=== PATIENT | female | born 1945 | race African-American/Black ===

== ENCOUNTER 2023-09-30 08:13 | Outpatient (CLI) | payer MEDICARE, OTHER ==
[2023-09-30 12:50] LABS: ESTIMATED AVERAGE GLUCOSE 131 mg/dL (70-100); HEMOGLOBIN A1c% 6.2 % (4.27-6.07)
== END 2023-09-30 08:14 | disposition home or self-care (01) ==
LOC: LAB.N 08:13
PROVIDERS: ATTEND Nurse Practitioner
DX: E11.9 Type 2 diabetes mellitus without complications (principal)
CPT/HCPCS: 36415; 83036

== ENCOUNTER 2023-10-03 15:55 | Outpatient (CLI) | payer MEDICARE, OTHER ==
[2023-10-03 18:14] LABS: BASOPHILS % (AUTO) 0.9 %; EOSINOPHILS # (AUTO) 0.2 10^3/uL (0.0-0.7); EOSINOPHILS % (AUTO) 4.3 %; HGB - HEMOGLOBIN 9.3 g/dL (12.0-16.0); LYMPHOCYTES # (AUTO) 1.1 10^3/uL (1.5-3.5); LYMPHOCYTES % (AUTO) 24.5 %; MEAN CORPUSCULAR HEMOGLOBIN 30.2 pg (27.0-31.0); MEAN CORPUSCULAR HGB CONC 32.1 g/dL (32.0-36.0); MEAN CORPUSCULAR VOLUME 94.2 fL (81.0-99.0); MEAN PLATELET VOLUME 9.3 fL (7.9-10.8); MONOCYTES # (AUTO) 0.5 10^3/uL (0.0-1.0); MONOCYTES % (AUTO) 10.2 %; NEUTROPHILS # (AUTO) 2.8 10^3/uL (1.5-6.6); NEUTROPHILS % (AUTO) 59.7 %; PLT - PLATELET COUNT 209 10^3/uL (130-450); RED BLOOD COUNT 3.08 10^6/uL (4.20-5.40); RED CELL DISTRIBUTION WIDTH 13.2 % (12.0-15.0); WHITE BLOOD COUNT 4.6 x10^3/uL (4.8-10.8)
[2023-10-03 18:37] LABS: ALBUMIN 3.6 g/dL (3.2-5.5); ALBUMIN/GLOBULIN RATIO 0.8 (1.0-2.2); BILIRUBIN,TOTAL 0.6 mg/dL (0.2-1.0); CALCIUM 9.3 mg/dL (8.5-10.3); CREATININE 1.2 mg/dL (0.6-1.3); POTASSIUM 3.9 mmol/L (3.5-4.5); TOTAL PROTEIN 7.9 g/dL (6.4-8.9)
[2023-10-03 18:53] LABS: BILIRUBIN,URINE NEGATIVE (NEGATIVE); GLUCOSE, URINE (UA) NEGATIVE (NEGATIVE); KETONES,URINE (UA) TRACE mg/dL (NEGATIVE); LEUKOCYTE ESTERASE, URINE MODERATE (NEGATIVE); NITRITE,URINE NEGATIVE (NEGATIVE); OCCULT BLOOD,URINE NEGATIVE (NEGATIVE); PH,URINE 7.5 PH (5.0-7.5); PROTEIN,URINE TRACE mg/dL (NEGATIVE); UROBILINOGEN,URINE 0.2 (NORMAL) E.U./dL (NORMAL)
[2023-10-03 19:11] LABS: CLARITY,URINE CLOUDY (CLEAR)
[2023-10-03 19:12] LABS: BACTERIA,URINE Many /HPF (None Seen); RBC,URINE 0-5 /HPF (0-5); SQUAMOUS EPITHELIAL CELL,UR FEW Squamous (<= Few)
== END 2023-10-03 15:56 | disposition home or self-care (01) ==
LOC: LAB.N 15:55
PROVIDERS: ATTEND Nurse Practitioner
DX: R35.0 Frequency of micturition (principal); R53.83 Other fatigue
CPT/HCPCS: 36415; 80053; 81001; 85025; 87086

== ENCOUNTER 2024-01-28 09:34 | Emergency (ER) | payer MEDICARE, BC, OTHER ==
[2024-01-28 09:45] VITALS: O2SAT 100
--- NOTE | 2024-01-28 10:02 | ED Physician Documentation ---
PD HPI UPPER EXT INJURY - Stated complaint Stated Complaint: RT SIDE PX - Chief complaint Chief Complaint: Ext Problem - History obtained from History obtained from: Patient - History of Present Illness Location: Right, Forearm, Hand Type of injury: Fall (she states she did stumble and fell forward using her walker, with catching herself with right hand few days ago. Has pain in hand with redness and swelling since yesterday, with pain up to shoulder. Increased swelling and pain in hand today. Swollen dorsally. No skin abrasions/lacs.) Timing - onset: How many days ago (2) Timing - duration: Days Timing - details: Gradual onset (she did not have much pain at the time of the stumble. Gradual increase.), Still present PD PAST MEDICAL HISTORY - Past Medical History Past Medical History: Yes Cardiovascular: Hypertension, High cholesterol, Coronary artery disease, Peripheral Vascular Disease Neuro: Peripheral neuropathy Endocrine/Autoimmune: Type 2 diabetes GI: GERD : Incontinence Musculoskeletal: Rheumatoid arthritis - Past Surgical History Past Surgical History: Yes - Present Medications Home Medications: Ambulatory Orders Medication Instructions Recorded Confirmed Cyanocobalamin (Vitamin B-12) 1,000 mcg PO DAILY 07/19/23 01/28/24 [Vitamin B-12] Gabapentin [Neurontin] 100 mg PO HS 07/19/23 01/28/24 Insulin Glargine [Lantus Solostar] 12 unit SUBQ DAILY 07/19/23 01/28/24 Leflunomide 2 mg PO DAILY 07/19/23 01/28/24 Metoprolol Succinate [Toprol Xl] 50 mg PO DAILY 07/19/23 01/28/24 Mirabegron [Myrbetriq] 50 mg PO DAILY 07/19/23 01/28/24 Pravastatin Sodium 20 mg PO DAILY 07/19/23 01/28/24 Solifenacin Succinate 5 mg PO DAILY 07/19/23 01/28/24 hydrALAZINE [Apresoline] 100 mg PO BID 07/19/23 01/28/24 Aspirin [Aspirin Regimen] 81 mg PO DAILY 11/04/23 01/28/24 Cholecalciferol [Vitamin D3] 50 mcg PO DAILY 11/04/23 01/28/24 Enalapril Maleate [Vasotec] 20 mg PO UD 11/04/23 01/28/24 Pantoprazole [Protonix] 40 mg PO DAILY 11/04/23 01/28/24 Acetaminophen [Acetaminophen Extra 500 mg PO QID PRN #40 tablet 01/28/24 Strength] HYDROcod/ACETAM 5/325 [Bronaugh 5/325] 1 ea PO Q8H PRN #10 tablet 01/28/24 dexAMETHasone [Decadron] 4 mg PO DAILY #3 tablet 01/28/24 - Allergies Allergies/Adverse Reactions: Allergies Allergy/AdvReac Type Severity Reaction Status Date / Time Iodinated Contrast Media Allergy Unknown Verified 01/28/24 10:06 metformin Allergy Unknown Verified 01/28/24 10:06 sulfacetamide Allergy Rash Verified 01/28/24 10:06 sulfamethoxazole Allergy Rash Verified 01/28/24 10:06 [From Sulfamethoxazole-Trimethoprim] trimethoprim Allergy Rash Verified 01/28/24 10:06 [From Sulfamethoxazole-Trimethoprim] - Social History Does the pt smoke?: No Smoking Status: Never smoker Does the pt drink ETOH?: No Does the pt have substance abuse?: No - Immunizations Immunizations are current?: Yes - POLST Patient has POLST: No PD ED PE NORMAL - Vitals Vital signs reviewed: Yes - General General: Alert and oriented X 3, Well developed/nourished - Derm Derm: Normal color, Warm and dry - Extremities Extremities: Other (shoulder and elbow without tenderness and passive ROM is without pain. No generl deformity. DOrsal right proximal hand/wrist with redness, exquisite tenderness and swelling. Palmar not tneder. No skin lesions/ abrasions noted. ) - Neuro Neuro: No motor deficit, No sensory deficit Results - Vitals Vitals: Vital Signs - 24 hr 01/28/24 01/28/24 09:38 12:49 Temperature 35.8 C L 36.3 C L Heart Rate 67 66 Respiratory 20 16 Rate Blood Pressure 123/83 H 145/66 H O2 Saturation 100 100 Oxygen O2 Source Room air - Rads (name of study) right hand xray Relevant Findings:: Prelim report reviewed (no fractures. ), EMP independent interpretation of test PD Medical Decision Making - ED course Complexity details: reviewed results (xray without fractures. ), considered differential (redness, swelling and very tender dorsal hand. No tenderness directly at elbow/shoulder and passive ROM of those areas does not hurt. No skin lesions of hand. I feel c/w gout or bruising. H/O maybe gout, but Dx as rheumatoid instead. ), d/w patient Departure - Departure Disposition: 01 Home, Self Care Clinical Impression: Swelling of right hand, Arm pain Condition: Stable Record reviewed to determine appropriate education?: Yes Follow-Up: Cheryle Moreno ARNP [Primary Care Provider] - Prescriptions: Acetaminophen [Acetaminophen Extra Strength] 500 mg PO QID PRN #40 tablet PRN Reason: Pain dexAMETHasone [Decadron] 4 mg PO DAILY #3 tablet HYDROcod/ACETAM 5/325 [Bronaugh 5/325] 1 ea PO Q8H PRN #10 tablet PRN Reason: Pain Comments: The x-ray of your hand does not show any obvious fractures or bony abnormalities. There are some arthritis in the wrist. I presume the swelling redness and tenderness on your hand is either a sprain or contusion or could be a flare of an inflammatory process such as gout or rheumatoid. You do have a history of rheumatoid and so this may be a episode of that. It could be affecting up to your shoulder as well. I would suggest treating with some anti-inflammatories. You do have some mild renal impairment/kidney function impairment and so minimize the NSAID use but you can still use it occasionally such as ibuprofen. Instead we can go with a steroid anti-inflammatory. This may increase your blood sugars in the short-term but you do have the sliding scale insulin if needed. Continue checking your blood sugars as usual. I would continue the dexamethasone steroid daily for 3 days to help with the inflammation and pain. To that add acetaminophen 4 times daily regularly for the next 7 to 10 days. To that you could add hydrocodone/acetaminophen every 6-8 hours if needed for worse pain, particularly before bed etc. Recheck if not improving well over the next few days. Use the wrist splint to help with discomfort of wrist motion. Follow-up or return if increasing or spreading redness. It does not look like an infection at this point but if it increases and would want to reconsider that. I sent your prescription to your preferred pharmacy. I am prescribing a short course of narcotic pain medication for you. These are potentially dangerous and addictive medications that should be used carefully. These medications may constipate you. Take an [id number] stool softener such as docusate twice daily with plenty of water while taking these me dications. If you go 24 hours without a bowel movement, take [id number] MiraLAX, per package instructions. Do not drink or drive while taking these medications. If you received narcotic or sedating medications while in the emergency department do not drive for 24 hours. Store this medication in a safe, secure place and out of reach of children. It is a violation of federal law to give or sell this medication to another person or to use in a manner other than prescribed. The ED will not refill narcotic prescriptions, including prescriptions lost or stolen. You can dispose of unwanted medications at the [facility]'s office or at several pharmacies such as [facility]. Forms: PCP List Discharge Date/Time: 01/28/24 12:50
[2024-01-28] MEDS: ACETAMINOPHEN 500 MG TABLET PO STA (10:53)
[2024-01-28] MEDS: NAPROXEN 250 MG TABLET PO STA (10:54)
[2024-01-28] MEDS: dexAMETHasone 4 MG TABLET PO STA (10:54)
--- NOTE | 2024-01-28 12:14 | XRAY Report ---
PROCEDURE: Wrist 3+V RT INDICATIONS: fell last week, wrist/hand pain and swelling TECHNIQUE: 4 views of the wrist were acquired. COMPARISON: None. FINDINGS: Bones: No fractures or dislocations. No suspicious bony lesions. Moderate first carpal metacarpal suggesting osteoarthrosis Soft tissues: No suspicious soft tissue calcifications or masses. IMPRESSION: No acute bony abnormality. Reviewed by: Carlos James MD on 01/28/2024 11:12 AM AKJOE Approved by: Carlos James MD on 01/28/2024 11:12 AM AKDT Station ID: [id number]
[2024-01-28 12:55] VITALS: BP 145/66
== END 2024-01-28 12:50 | disposition home or self-care (01) ==
LOC: ED 09:34
DX: M79.601 Pain in right arm (principal); R22.31 Localized swelling, mass and lump, right upper limb; W01.0XXA Fall on same level from slipping, tripping and stumbling without subsequent striking against object, initial encounter; M19.031 Primary osteoarthritis, right wrist; M06.9 Rheumatoid arthritis, unspecified; E11.9 Type 2 diabetes mellitus without complications; Z79.4 Long term (current) use of insulin; N28.9 Disorder of kidney and ureter, unspecified
CPT/HCPCS: 73110; 99283; 99284; A9270; J8540

== ENCOUNTER 2024-04-02 10:33 | Outpatient (CLI) | payer MEDICARE, BC, OTHER ==
[2024-04-02 12:21] LABS: BASOPHILS # (AUTO) 0.1 10^3/uL (0.0-0.1); BASOPHILS % (AUTO) 1.3 %; EOSINOPHILS # (AUTO) 0.1 10^3/uL (0.0-0.7); EOSINOPHILS % (AUTO) 2.7 %; HGB - HEMOGLOBIN 10.4 g/dL (12.0-16.0); MEAN CORPUSCULAR HGB CONC 31.5 g/dL (32.0-36.0); MEAN CORPUSCULAR VOLUME 98.5 fL (81.0-99.0); MEAN PLATELET VOLUME 9.5 fL (7.9-10.8); MONOCYTES # (AUTO) 0.5 10^3/uL (0.0-1.0); MONOCYTES % (AUTO) 13.7 %; NEUTROPHILS # (AUTO) 2.1 10^3/uL (1.5-6.6); PLT - PLATELET COUNT 209 10^3/uL (130-450); RED BLOOD COUNT 3.35 10^6/uL (4.20-5.40); RED CELL DISTRIBUTION WIDTH 14.3 % (12.0-15.0); WHITE BLOOD COUNT 3.7 x10^3/uL (4.8-10.8)
[2024-04-02 12:28] LABS: ALBUMIN/GLOBULIN RATIO 1.1 (1.0-2.2); BILIRUBIN,TOTAL 0.5 mg/dL (0.2-1.0); CALCIUM 9.8 mg/dL (8.5-10.3); CREATININE 1.4 mg/dL (0.6-1.3); POTASSIUM 3.9 mmol/L (3.5-4.5); TOTAL PROTEIN 7.6 g/dL (6.4-8.9)
[2024-04-02 14:23] LABS: ESTIMATED AVERAGE GLUCOSE 103 mg/dL (70-100); HEMOGLOBIN A1c% 5.2 % (4.27-6.07)
== END 2024-04-02 10:34 | disposition home or self-care (01) ==
LOC: LAB.N 10:33
PROVIDERS: ATTEND Nurse Practitioner
DX: E11.42 Type 2 diabetes mellitus with diabetic polyneuropathy (principal)
CPT/HCPCS: 36415; 80053; 83036; 85025

== ENCOUNTER 2024-05-20 18:44 | Outpatient (CLI) | payer MEDICARE, BC, OTHER | END 2024-05-20 23:59 | disposition EMS.NT | LOC: EMS 18:44 | DX: I10 Essential (primary) hypertension (principal); Z91.138 Patient's unintentional underdosing of medication regimen for other reason ==